=== PATIENT | female | born 1985 | race Caucasian/White ===

== ENCOUNTER 2019-01-14 13:31 | Emergency (ER) | payer OTHER ==
[~2019-01-14] VITALS: Ht 147.3 cm; Wt 80.6 kg
[2019-01-14 13:49] VITALS: BP 109/77; PULSE 75; RESP 16; Ht 147.3 cm; Wt 80.6 kg
--- NOTE | 2019-01-14 15:45 | ERD ---
ER Documentation Chief Complaint Chief Complaint R 1st toe pain x1yr, states interm bleed. amb w steady gait. HPI 33-year-old female presents with complaint of 1st right toe pain for the past year. States that there is associated swelling to the toe as well with some intermittent bleeding. Patient denies any fevers, chills, numbness, weakness, impaired range of motion. Patient is amatory. Not taking any treatments. ROS All systems reviewed and are negative except as per history of present illness. Medications Home Meds Active Scripts Cephalexin* (Keflex*) 500 Mg Capsule, 500 MG PO QID for 7 Days, CAP Prov:JL VÁSQUEZ 01/14/19 Allergies Allergies: Coded Allergies: No Known Allergy (Unverified , 01/14/19) FmHx Family History: No diabetes, No coronary disease, No other Physical Exam Vitals Vital Signs Date Temp Pulse Resp B/P (MAP) Pulse Ox O2 O2 Flow FiO2 Time Delivery Rate 01/14/19 98.5 75 16 109/77 99 13:49 (88) Physical Exam Const: No acute distress Head: Atraumatic Eyes: Normal Conjunctiva ENT: Normal External Ears, Nose and Mouth. Neck: Full range of motion. No meningismus. Resp: Clear to auscultation bilaterally Cardio: Regular rate and rhythm, no murmurs Abd: Soft, non tender, non distended. Normal bowel sounds Skin: Moderate edema noted to the medial aspect of first right toe with associated ingrown toenail. There is no lymphatic streaking noted. There is no drainage noted. Back: No midline or flank tenderness Ext: No cyanosis, or edema Neur: Awake and alert Psych: Normal Mood and Affect Results 24 hrs Current Medications Medications Dose Sig/Filipe Start Time Status Last (Trade) Ordered Route PRN Stop Time Admin Dose Reason Admin Lidocaine 20 ml ONCE ONCE 01/14/19 DC (Xylocaine SC 16:00 01/14/19 1% (Mdv) 20 16:01 ml) Lidocaine 1 applic ONCE ONCE 01/14/19 DC 01/14/19 (Lmx 4% Plus) TOP 16:00 01/14/19 15:49 16:01 Bacitracin 1 applic STK-MED 01/14/19 DC (Bacitracin ONCE .ROUTE 16:52 01/14/19 Oint (Ud)) 16:53 Procedures/MDM toenail Removal by me: Anesthesia: 1% lidocaine Digital Block Location: 1st right toe Technique: from nail bed, vertical split, twisting towards remaining nail. Packing: Non-adherent dressing applied Complications: None Recommend bid dressing changes and warm water soaks. MDM: Procedure was performed using above technique by student under my direct supervision. Patient tolerated procedure well procedures before without any complications. Bacitracin was applied as well as dressing. Patient was given Rx for Keflex as there appeared to be a mild infection. The suspicion for retained foreign bodies, acute space infection, cellulitis, or any emergent condition. At this time, patient is stable for discharge and outpatient management. I have instructed the patient to follow-up with his/her primary care physician in 1-2 days. I have discussed with the patient the possibility of needing to see a specialist for further workup and imaging studies if symptoms persist. I have instructed the patient to promptly return to the ER for any new or worsening symptoms including but not limited to increased pain, fever, nausea, vomiting, weakness or LOC. The patient and/or family expressed understanding of and agreement with this plan. All questions were answered. Home care instructions were provided. DISCLAIMER: Inadvertent spelling and grammatical errors are likely due to EHR/dictation software use and do not reflect on the overall quality of patient care. Also, please note that the electronic time recorded on this note does not necessarily reflect the actual time of the patient encounter. Departure Diagnosis: Primary Impression: Ingrown toenail Condition: Stable JL VÁSQUEZ Jan 14, 2019 15:45
[2019-01-14] MEDS ORDERED: LIDOCAINE 4% CR TOP ONE (16:00)
[2019-01-14] MEDS ORDERED: LIDOCAINE 1% (MDV) 20 ML INJ SC ONE (16:00)
[2019-01-14] MEDS ORDERED: CEPH-443 PO (16:47)
[2019-01-14] MEDS ORDERED: BACITRACIN 0.9 GM OINT ONE (16:52)
== END 2019-01-14 16:57 | disposition home or self-care (01) ==
LOC: FTE 13:31
DX: L60.0 Ingrowing nail (principal)
CPT/HCPCS: 11750; Z7502; Z7610